=== PATIENT | male | born 1990 | race African-American/Black ===

== ENCOUNTER 2017-06-15 18:26 | Emergency (ER) | payer SELFPAY ==
--- NOTE | 2017-06-15 19:54 | DIAGNOSTIC IMAGING REPORT ---
PROCEDURE: XR ANKLE 3 OR 4 VIEWS - RIGHT INDICATION: TRAUMA/INJURY TECHNIQUE: Four views of the right ankle. COMPARISON: None. FINDINGS: Normal mineralization. No fractures. Asymmetric medial mortise widening, 5.3 mm versus 3.3 mm. No tibiotalar joint effusion. No suspicious soft-tissue calcification or radiodense foreign bodies. Achilles tendon appears grossly normal. IMPRESSION: 1. Asymmetric widening of the medial mortise. This may indicate ligamentous injury although the degree of swelling is minimal. 2. Knee radiograph is recommended to rule out high fibular fracture, Maissonieuve fracture.
--- NOTE | 2017-06-15 21:37 | DIAGNOSTIC IMAGING REPORT ---
PROCEDURE: XR TIBIA AND FIBULA - RIGHT INDICATION: PER RADIOLOGIST RECOMMENDATION TECHNIQUE: Two views of the right tibia and fibula COMPARISON: None. FINDINGS: Normal mineralization. Spiral, minimally displaced proximal fibular metadiaphyseal fracture. Proximal and distal tibiofibular relationship is normal. No radiodense foreign bodies or suspicious soft tissue calcifications. IMPRESSION: 1. Spiral, proximal fibular fracture.
--- NOTE | 2017-06-15 22:20 | ED CLINICAL REPORT ---
Clinical Report - Physicians/Mid Levels [facility] [address] [place] [address] 06/15/2017 18:27 Patient: OSWALDO MELARA Time Seen: 1828; upon arrival, initial patient contact, initial documentation, patient care assumed. Arrived- By ambulance. Historian- patient. HISTORY OF PRESENT ILLNESS Chief Complaint: Injury to the right ankle. The injury happened just prior to arrival. The patient sustained a twisting injury while running playing football (playing football, got tackled and foot got bent under him). Occurred at an athletic field. Patient is experiencing severe pain. Patient denies injury to the head or neck. No other injury. REVIEW OF SYSTEMS The patient complains of pain on weight bearing. He has had swelling. No tingling, weakness, numbness, suspected foreign body or skin laceration. All systems otherwise negative, except as recorded above. PAST HISTORY See nurses notes. PROBLEMS: Asthma. --18:31 Gera Gillespie RJadeN. ADDITIONAL SURGERIES: Wrist surgery. --18:31 Gera Gillespie RGwen. SOCIAL HISTORY Never smoker. History of drug use: marijuana. No alcohol use. No recent travel. Visiting locally. FAMILY HISTORY No significant family medical history. ADDITIONAL NOTES The nursing notes have been reviewed with agreement regarding the chief complaint, HPI, ROS, PMH and patient medications and allergies. PHYSICAL EXAM Vital Signs: 06/15/2017 18:33 BP: 153/103. HR: 60. RR: 23. O2 saturation: 100%. Temp: 98.7 F. Pain level now: 10/10. Have been reviewed as abnormal and appear to be correct. Hypertensive. Heart rate normal. Respiratory rate normal. Temperature normal. Oxygen saturation normal. Appearance: Alert. Oriented X3. Anxious. No acute distress. (and yelling out). Head: Head atraumatic. Eyes: Pupils equal, round and reactive to light. Eyes normal inspection. Respiratory: No respiratory distress. Skin: Skin intact. Skin warm and dry. Extremities: Ankle injury present. Right lateral ankle: moderate tenderness and swelling of the lateral malleolus. Limited ROM (diminished plantar flexion, dorsiflexion, inversion and eversion). Neurovascular intact distally. No ligamentous laxity present. No joint effusion. No erythema, laceration, abrasion, ecchymosis or puncture wound. No foreign body or deformity. No foot injury. Foot and ankle exam otherwise negative. Extremities otherwise negative. Neuro, Vascular and Tendons: Vascular status intact. Sensation intact. Motor intact. Tendon function intact. Gait: Abnormal gait. Gait not tested due to pain. Neuro: Oriented X 3. No motor deficit. No sensory deficit. Note: isolated injury to ankle. LABS, X-RAYS, AND EKG X-Rays: Right tib/fib. Right ankle negative. Rt Tib/Fib X-ray: Fracture of the proximal right fibula. The X-rays were independently viewed by me. Rt Ankle X-ray: (IMPRESSION: 1. Asymmetric widening of the medial mortise. This may indicate ligamentous injury although the degree of swelling is minimal. 2. Knee radiograph is recommended to rule out high fibular fracture, Maissonieuve fracture. Electronically Final signed by:Eladia Hong MD 06/15/2017 7:55:01 PM). PROGRESS AND PROCEDURES Splint Application: Posterior fiberglass splint applied to right lower extremity. Splint applied by tech. Follow-up recommended within 3 days. Fitted for crutches by the tech. pt left prior to me checking splint. Course of Care: 1844. pt anxious, crying, aware of xray results 1899. Called radiology for reads, still waiting for reports pt aware we needed more films R lower leg re-assessed, tender everywhere I touch nurses informing pt left after splint, so splint never got checked by me, pt did receive dc papers and rx. Patient counseled in person regarding the patient's stable condition, test results and diagnosis. 20:37. Differential Diagnosis: Other possible considerations: ankle fx vs sprain. Above considerations are based on history, physical exam, reassessment and X-Ray data. Differential diagnosis was discussed with patient. Disposition: Discharged home in good and improved condition. Condition: good and stable. CLINICAL IMPRESSION Closed nondisplaced oblique fracture of the proximal aspect of the right fibula. Sprain of the tarsal ligaments of the right foot. INSTRUCTIONS Apply ice for 20 minutes four times a day for two days until better. Don't apply ice directly to skin. Use crutches until released. Wear fiberglass splint until released. Elevate affected areas above chest level for two days until better. Warnings: GENERAL WARNINGS: Return or contact your physician immediately if your condition worsens or changes unexpectedly, if not improving as expected, or if other problems arise. Specifically return if problem worsens. Prescription Medications: Zofran 4 mg: Take 1 orally every six hours as needed for nausea/vomiting. Dispense ten (10). No refills. Substitution is permissible. [place] 5 mg / 325 mg tablets: take 1 orally every 6 hours. Dispense thirty (30). No refill. Motrin 800 mg tablets: take 1 tablet orally every 8 hours as needed for pain. Dispense thirty (30). No refills. Substitution is permissible. Follow-up: Follow up with an orthopedic surgeon in about three days even if well. Call for an appointment. Summary of care provided to patient. Understanding of the discharge instructions verbalized by patient. (Electronically signed by Shama Browning A.R.N.P. 06/15/2017 22:51)
--- NOTE | 2017-06-15 22:20 | ED NURSING NOTES ---
Clinical Report - Nurses [place] [address] [place] [address] 06/15/2017 18:27 [id number] Triage time 18:30 Jun 15 2017. Acuity: LEVEL 4. Chief Complaint: INJURY TO RIGHT KNEE and ANKLE. Alert. No acute distress. SEPSIS SCREEN: Sepsis Screen. Negative (no infection suspected/documented). KYE COMA SCORE: [place] Coma Scale: 15- eyes open spontaneously (4); best verbal response- oriented x 4 (5); best motor response- obeys commands (6). --18:32 Gera Gillespie R.N. 18:33 06/15/17. BP: 153/103. HR: 60. RR: 23. O2 saturation: 100%. Temp: 98.7 F. Pain level now: 09/10. --18:34 Gera Gillespie R.N. Weight: 113.3 kg stated. Height/Length: 72 inches Per Patient. BMI: 33.9. --18:31 Gera Gillespie R.N. Medications None. --18:31 Gera Gillespie R.N. Allergies None. --18:31 Gera Gillespie R.N. Medication/allergy information source: the patient. --18:32 Gera Gillespie R.N. History Arrived by EMS. Historian: patient. This occurred just prior to arrival. Mechanism of injury: (pt playing football, was tackled and felt a pop to right ankle). Treatment REHABILITATION SERVICES DIRECTOR: Splint. See EMS report. PAST MEDICAL HX: Tetanus status: up-to-date. Immunizations: up-to-date. SOCIAL HX: Never smoker. History of drug use: marijuana. No alcohol use. No infectious disease exposure. ABUSE ASSESSMENT: No report of abuse. SELF HARM ASSESSMENT: A self harm assessment was performed. The patient answered "no" to the question "Do you have thoughts of harming or killing yourself?". FALL RISK ASSESSMENT: Fall risk assessment completed. No fall risk identified. NUTRITIONAL RISK ASSESSMENT: The nutritional risk assessment revealed no deficiencies. FUNCTIONAL ASSESSMENT: Functional assessment: no impairments noted. LEARNING NEEDS ASSESSMENT: The learning needs assessment revealed no barriers. SKIN INTEGRITY ASSESSMENT: Skin integrity risk assessment completed. No skin integrity risk identified. --18:32 Gera Gillespie R.N. PROBLEMS: Asthma. --18:31 Gera Gillespie R.N. ADDITIONAL SURGERIES: Wrist surgery. --18:31 Gera Gillespie R.N. Interventions ID band on patient. To treatment room. --18:32 Gera Gillespie R.N. PHYSICAL ASSESSMENT To room via stretcher. GENERAL / NEURO / PSYCH: Oriented X 4. Alert. Appears in no acute distress. EXTREMITIES: Limited ROM present. Capillary refill is less than 2 seconds in the extremities. Extremity pulses are within normal limits. Neuro-vascular status intact to the extremity. Right posterior ankle: tenderness and swelling and lateral ankle: tenderness and swelling. SKIN: Skin intact. Skin is warm and dry. --18:33 Gera Gillespie R.N. NURSING PROGRESS NOTES Reassurance given. Call light placed in reach. Side rails up x 2. Bed placed in lowest position. Brakes of bed on. --18:33 Gera Gillespie R.N. 18:30 06/15/2017 Dilaudid (HYDROmorphone HCl PF) IM 1 mg given. Given in the left deltoid. Allergies verified, confirmed 5 rights and sedative warning given to the patient. --18:48 Janice Aragon R.N. 18:30 06/15/2017 Zofran ODT (Ondansetron) PO Oral Disintegrating Tablets 4 mg given. Allergies verified and confirmed 5 rights. --18:48 Janice Aragon R.N. Patient waiting for radiology results. ( pt crying and swearing, reports no change in pain since presentation and pain meds.). --19:04 Gera Gillespie R.N. ( cont to wait on rad read, WARD MAID called to inquire, pt updated). --19:21 Gera Gillespie R.N. 20:40 06/15/2017 Toradol (Ketorolac Tromethamine) IM 60 mg given. Given in the left ventral gluteus. Allergies verified and confirmed 5 rights. --20:42 Titus Mitchell R.N. ( preparing pt for dispo, pt reports no change in pain after meds given, pt is now calm, smiling, no longer crying, friends at bedside, splint being placed,). --21:30 Gera Gillespie R.N. 20:21 06/15/17. BP: 147/84. HR: 64. RR: 17. O2 saturation: 99%. Pain level now: 09/10. --21:31 Gera Gillespie R.N. Call light placed in reach. Side rails up x 2. Bed placed in lowest position. Brakes of bed on. --21:31 Gera Gillespie R.N. 21:45. Short leg posterior fiberglass lower extremity splint applied to right leg by tech. Distal pulses intact, sensation intact and motor within normal limits. Patient fit with new crutches. Crutch training performed by tech; the patient demonstrated proper use. --22:38 Rin Horton. DISPOSITION / DISCHARGE 21:44 06/15/17. No learning barriers present. Discharge instructions provided and reviewed with the patient. Reviewed medication(s) side effects, precautions, dosing and course information. Prescription(s) given to the patient. Patient verbalized understanding. Written instructions provided in Maori. The patient was discharged by the nurse practitioner. He was discharged home and accompanied by water chaser. He left the Emergency Department ambulatory on crutches and via private vehicle. Peanut Shaker driving. ( pt given dc instructions and rx, pt instructed on how to check for cms to foot and f/u with ortho, splint placed by ASA Gar, pt instructed to wait for WARD MAID to check splint -). --21:54 Gera Gillespie R.N. 21:50 06/15/17. BP: 141/92. HR: 64. RR: 15. O2 saturation: 100%. Temp: deferred. Pain level now: 09/10. --21:54 Gera Gillespie R.N. Departure time: 21:54 Jun 15 2017. ( pts room empty, pt seen going to lobby using crutches). --21:54 Gera Gillespie R.N. Locked/Released at 06/15/2017 23:40 by Gera Gillespie R.N.
--- NOTE | 2017-06-15 22:20 | ED ORDER SUMMARY ---
..... Patient: OSWALDO MELARA OrderSheet VisitID: [id number] [address] [place] [address] 27y, M Registration Date/Time: 06/15/2017 ORDER SHEET Weight: 113.3 kg (stated) Allergies: None GENERAL ORDERS: Ankle 3 or 4V Right Urgent (18:31 06/15/2017 HBivens A.R.N.P.) (Ack 18:35 Brian) (18:45 Serg) Tibia/Fibula Right Urgent (20:00 06/15/2017 HBivens A.R.N.P.) (Ack 20:03 AMcQuoid ER Tech1) (20:46 RFay) Splint (LE) (Right) (Short Leg Posterior) (20:36 06/15/2017 HBivens A.R.N.P.) (21:48 KKnebel R.N.) Crutches (20:36 06/15/2017 HBivens A.R.N.P.) (21:48 KKnebel R.N.) MEDICATION ORDERS: Dilaudid IM 1 mg (HIGH ALERT MEDICATION, NOW) (18:31 06/15/2017 HBivens A.R.N.P.) (18:48 KWilliams R.N.) Zofran ODT PO 4 mg (NOW) (18:31 06/15/2017 HBivens A.R.N.P.) (18:48 KWilliams R.N.) Toradol IM 60 mg (NOW) (20:31 06/15/2017 HBivens A.R.N.P.) (Ack 20:33 Rupa R.N.) (20:42 Delfino R.N.) IV FLUIDS: ORDER SHEET NOTES: [Electronically signed by Shama Browning.R.N.P. (22:51 06/15/2017)] [Electronically signed by Gera GillespieNJade (23:40 06/15/2017)] [Electronically locked/signed by Gera Gillespie R.N. (23:40 06/15/2017)]
--- NOTE | 2017-06-15 22:20 | ED ORDER SUMMARY ---
..... Patient: OSWALDO MELARA OrderSheet [facility] VisitID: [id number] [address] [place] [address] 27y, M Registration Date/Time: 06/15/2017 ORDER SHEET Weight: 113.3 kg (stated) Allergies: None GENERAL ORDERS: Ankle 3 or 4V Right Urgent (18:31 06/15/2017 HBivens A.R.N.P.) (Ack 18:35 Brian) (18:45 Serg) Tibia/Fibula Right Urgent (20:00 06/15/2017 HBivens A.R.N.P.) (Ack 20:03 AMcQuoid ER Tech1) (20:46 RFay) Splint (LE) (Right) (Short Leg Posterior) (20:36 06/15/2017 HBivens A.R.N.P.) (21:48 KKnebel R.N.) Crutches (20:36 06/15/2017 HBivens A.R.N.P.) (21:48 KKnebel R.N.) MEDICATION ORDERS: Dilaudid IM 1 mg (HIGH ALERT MEDICATION, NOW) (18:31 06/15/2017 HBivens A.R.N.P.) (18:48 KWilliams R.N.) Zofran ODT PO 4 mg (NOW) (18:31 06/15/2017 HBivens A.R.N.P.) (18:48 KWilliams R.N.) Toradol IM 60 mg (NOW) (20:31 06/15/2017 HBivens A.R.N.P.) (Ack 20:33 Rupa R.N.) (20:42 Delfino R.N.) IV FLUIDS: ORDER SHEET NOTES: [Electronically signed by Shama Browning.R.N.P. (22:51 06/15/2017)] [Electronically signed by Gera GillespieNJade (23:40 06/15/2017)] [Electronically locked/signed by Gera Gillespie R.N. (23:40 06/15/2017)]
--- NOTE | 2017-06-15 22:20 | ED NURSING NOTES ---
Clinical Report - Nurses [place] [address] [place] [address] 06/15/2017 18:27 [id number] Triage time 18:30 Jun 15 2017. Acuity: LEVEL 4. Chief Complaint: INJURY TO RIGHT KNEE and ANKLE. Alert. No acute distress. SEPSIS SCREEN: Sepsis Screen. Negative (no infection suspected/documented). KYE COMA SCORE: [place] Coma Scale: 15- eyes open spontaneously (4); best verbal response- oriented x 4 (5); best motor response- obeys commands (6). --18:32 Gera Gillespie R.N. 18:33 06/15/17. BP: 153/103. HR: 60. RR: 23. O2 saturation: 100%. Temp: 98.7 F. Pain level now: 09/10. --18:34 Gera Gillespie R.N. Weight: 113.3 kg stated. Height/Length: 72 inches Per Patient. BMI: 33.9. --18:31 Gera Gillespie R.N. Medications None. --18:31 Gera Gillespie R.N. Allergies None. --18:31 Gera Gillespie R.N. Medication/allergy information source: the patient. --18:32 Gera Gillespie R.N. History Arrived by EMS. Historian: patient. This occurred just prior to arrival. Mechanism of injury: (pt playing football, was tackled and felt a pop to right ankle). Treatment BLACK PULLER: Splint. See EMS report. PAST MEDICAL HX: Tetanus status: up-to-date. Immunizations: up-to-date. SOCIAL HX: Never smoker. History of drug use: marijuana. No alcohol use. No infectious disease exposure. ABUSE ASSESSMENT: No report of abuse. SELF HARM ASSESSMENT: A self harm assessment was performed. The patient answered "no" to the question "Do you have thoughts of harming or killing yourself?". FALL RISK ASSESSMENT: Fall risk assessment completed. No fall risk identified. NUTRITIONAL RISK ASSESSMENT: The nutritional risk assessment revealed no deficiencies. FUNCTIONAL ASSESSMENT: Functional assessment: no impairments noted. LEARNING NEEDS ASSESSMENT: The learning needs assessment revealed no barriers. SKIN INTEGRITY ASSESSMENT: Skin integrity risk assessment completed. No skin integrity risk identified. --18:32 Gera Gillespie R.N. PROBLEMS: Asthma. --18:31 Gera Gillespie R.N. ADDITIONAL SURGERIES: Wrist surgery. --18:31 Gera Gillespie R.N. Interventions ID band on patient. To treatment room. --18:32 Gera Gillespie R.N. PHYSICAL ASSESSMENT To room via stretcher. GENERAL / NEURO / PSYCH: Oriented X 4. Alert. Appears in no acute distress. EXTREMITIES: Limited ROM present. Capillary refill is less than 2 seconds in the extremities. Extremity pulses are within normal limits. Neuro-vascular status intact to the extremity. Right posterior ankle: tenderness and swelling and lateral ankle: tenderness and swelling. SKIN: Skin intact. Skin is warm and dry. --18:33 Gera Gillespie R.N. NURSING PROGRESS NOTES Reassurance given. Call light placed in reach. Side rails up x 2. Bed placed in lowest position. Brakes of bed on. --18:33 Gera Gillespie R.N. 18:30 06/15/2017 Dilaudid (HYDROmorphone HCl PF) IM 1 mg given. Given in the left deltoid. Allergies verified, confirmed 5 rights and sedative warning given to the patient. --18:48 Janice Aragon R.N. 18:30 06/15/2017 Zofran ODT (Ondansetron) PO Oral Disintegrating Tablets 4 mg given. Allergies verified and confirmed 5 rights. --18:48 Janice Aragon R.N. Patient waiting for radiology results. ( pt crying and swearing, reports no change in pain since presentation and pain meds.). --19:04 Gera Gillespie R.N. ( cont to wait on rad read, GRIEVANCE AND APPEALS SPECIALIST called to inquire, pt updated). --19:21 Gera Gillespie R.N. 20:40 06/15/2017 Toradol (Ketorolac Tromethamine) IM 60 mg given. Given in the left ventral gluteus. Allergies verified and confirmed 5 rights. --20:42 Titus Mitchell R.N. ( preparing pt for dispo, pt reports no change in pain after meds given, pt is now calm, smiling, no longer crying, friends at bedside, splint being placed,). --21:30 Gera Gillespie R.N. 20:21 06/15/17. BP: 147/84. HR: 64. RR: 17. O2 saturation: 99%. Pain level now: 09/10. --21:31 Gera Gillespie R.N. Call light placed in reach. Side rails up x 2. Bed placed in lowest position. Brakes of bed on. --21:31 Gera Gillespie R.N. 21:45. Short leg posterior fiberglass lower extremity splint applied to right leg by tech. Distal pulses intact, sensation intact and motor within normal limits. Patient fit with new crutches. Crutch training performed by tech; the patient demonstrated proper use. --22:38 Rin Horton. DISPOSITION / DISCHARGE 21:44 06/15/17. No learning barriers present. Discharge instructions provided and reviewed with the patient. Reviewed medication(s) side effects, precautions, dosing and course information. Prescription(s) given to the patient. Patient verbalized understanding. Written instructions provided in Armenian. The patient was discharged by the nurse practitioner. He was discharged home and accompanied by histology technologist. He left the Emergency Department ambulatory on crutches and via private vehicle. [employer] driving. ( pt given dc instructions and rx, pt instructed on how to check for cms to foot and f/u with ortho, splint placed by ASA Gar, pt instructed to wait for GRIEVANCE AND APPEALS SPECIALIST to check splint -). --21:54 Gera Gillespie R.N. 21:50 06/15/17. BP: 141/92. HR: 64. RR: 15. O2 saturation: 100%. Temp: deferred. Pain level now: 09/10. --21:54 Gera Gillespie R.N. Departure time: 21:54 Jun 15 2017. ( pts room empty, pt seen going to lobby using crutches). --21:54 Gera Gillespie R.N. Locked/Released at 06/15/2017 23:40 by Gera Gillespie R.N.
--- NOTE | 2017-06-15 23:40 | ED MAR SUMMARY ---
..... Medication Administration Record [facility] [address] [place] [address] Patient: OSWALDO MELARA Visit ID: [id number] 27y, M Weight: 113.3 kg Height/Length: 72 in BMI: 33.9 ALLERGIES: None Given 18:30 06/15/2017 Janice Aragon RKeshawn Medication Administered: DILAUDID [IM] (HYDROMORPHONE HCL PF), Dose: 1 mg IM. Medication Ordered: Dilaudid IM 1 mg (HIGH ALERT MEDICATION, NOW). Given 18:30 06/15/2017 Janice Aragon RKeshawn Medication Administered: ZOFRAN ODT [PO] (ONDANSETRON), Dose: 4 mg Oral Disintegrating Tablets PO. Medication Ordered: Zofran ODT PO 4 mg (NOW). Given 20:40 06/15/2017 Titus Mitchell RJadeNJade Medication Administered: TORADOL [IM] (KETOROLAC TROMETHAMINE), Dose: 60 mg IM. Medication Ordered: Toradol IM 60 mg (NOW).
--- NOTE | 2017-06-15 23:40 | ED MED RECONCILIATION SUMMARY ---
Patient: OSWALDO MELARA Medication Reconciliation Report [facility] VisitID: [id number] [address] [place] [address] 27y, M Registration Date/Time: 06/15/2017 Weight: 113.3 kg Height/Length: 72 in. BMI: 33.9 ALLERGIES: None The patient's Home Medications are listed below: NONE. The source(s) of the original Home Medication information: patient The following Medications were given to the patient in the Emergency Department: Dilaudid [IM] IM 1 mg, administered: 06/15/2017 6:30:00 PM Zofran ODT [PO] PO 4 mg, administered: 06/15/2017 6:30:00 PM Toradol [IM] IM 60 mg, administered: 06/15/2017 8:40:00 PM The following Medications were prescribed to the patient: Zofran 4 mg: Take 1 orally every six hours as needed for nausea/vomiting. Dispense ten (10). No refills. Substitution is permissible. -- Shama Browning A.R.N.P. [place] 5 mg / 325 mg tablets: take 1 orally every 6 hours. Dispense thirty (30). No refill. -- Shama Browning A.R.N.P. Motrin 800 mg tablets: take 1 tablet orally every 8 hours as needed for pain. Dispense thirty (30). No refills. Substitution is permissible. -- Shama Browning A.R.N.P.
--- NOTE | 2017-06-15 23:40 | ED MED RECONCILIATION SUMMARY ---
Patient: OSWALDO MELARA Medication Reconciliation Report [facility] VisitID: [id number] [address] [place] [address] 27y, M Registration Date/Time: 06/15/2017 Weight: 113.3 kg Height/Length: 72 in. BMI: 33.9 ALLERGIES: None The patient's Home Medications are listed below: NONE. The source(s) of the original Home Medication information: patient The following Medications were given to the patient in the Emergency Department: Dilaudid [IM] IM 1 mg, administered: 06/15/2017 6:30:00 PM Zofran ODT [PO] PO 4 mg, administered: 06/15/2017 6:30:00 PM Toradol [IM] IM 60 mg, administered: 06/15/2017 8:40:00 PM The following Medications were prescribed to the patient: Zofran 4 mg: Take 1 orally every six hours as needed for nausea/vomiting. Dispense ten (10). No refills. Substitution is permissible. -- Shama Browning A.R.N.P. [place] 5 mg / 325 mg tablets: take 1 orally every 6 hours. Dispense thirty (30). No refill. -- Shama Browning A.R.N.P. Motrin 800 mg tablets: take 1 tablet orally every 8 hours as needed for pain. Dispense thirty (30). No refills. Substitution is permissible. -- Shama Browning A.R.N.P.
--- NOTE | 2017-06-15 23:40 | ED DISCHARGE INSTRUCTIONS ---
Patient: OSWALDO MELARA General Instructions [facility] VisitID: [id number] [address] [place] [address] 27y, M Registration Date/Time: 06/15/2017 Closed nondisplaced oblique fracture of the proximal aspect of the right fibula. Sprain of the tarsal ligaments of the right foot. INSTRUCTIONS Apply ice for 20 minutes four times a day for two days until better. Don't apply ice directly to skin. Use crutches until released. Wear fiberglass splint until released. Elevate affected areas above chest level for two days until better. Warnings: GENERAL WARNINGS: Return or contact your physician immediately if your condition worsens or changes unexpectedly, if not improving as expected, or if other problems arise. Specifically return if problem worsens. Prescription Medications: Zofran 4 mg: Take 1 orally every six hours as needed for nausea/vomiting. Dispense ten (10). No refills. Substitution is permissible. [place] 5 mg / 325 mg tablets: take 1 orally every 6 hours. Dispense thirty (30). No refill. Motrin 800 mg tablets: take 1 tablet orally every 8 hours as needed for pain. Dispense thirty (30). No refills. Substitution is permissible. Follow-up: Follow up with an orthopedic surgeon in about three days even if well. Call for an appointment. Summary of care provided to patient. Understanding of the discharge instructions verbalized by patient. ADDITIONAL INFORMATION Sprain, Foot A sprain is a stretching or tearing of the ligaments that hold a joint together. There are no broken bones. Sprains take from 36 weeks to heal. A sprain may be treated with a splint, walking cast or special boot. Mild sprains may not require any additional support. Home care The following guidelines will help you care for your injury at home: Keep your leg elevated when sitting or lying down. This is very important during the first 48 hours to reduce swelling. Stay off the injured foot as much as possible until you can walk on it without pain. If needed, you may use crutches during the first week for this purpose. (Crutches can be rented at many pharmacies or surgical/orthopedic supply stores). You may be given a cast shoe to wear to prevent movement in your foot. If not, you can use a sandal or any shoe that does not put pressure on the injured area until the swelling and pain go away. If using a sandal, be careful not to strike your foot against anything, since another injury could make the sprain worse. Apply an ice pack (ice cubes in a plastic bag, wrapped in a towel) over the injured area for 20 minutes every 12 hours the first day. You should continue with ice packs 34 times a day for the next two days. Continue the use of ice packs for relief of pain and swelling as needed. You may use acetaminophen or ibuprofen to control pain, unless another medicine was prescribed. If you have chronic liver or kidney disease or ever had a stomach ulcer or GI bleeding, talk with your doctor before using these medicines. If you were given a splint or cast, keep it dry. Bathe with your splint/cast well out of the water, protected with a large plastic bag, rubber-banded at the top end. If a fiberglass splint or cast gets wet, you can dry it with a hair-dryer. You may return to sports after healing, when you can run without pain. Follow-up care Follow up with your doctor as directed. Any X-rays you had today dont show any broken bones, breaks, or fractures. Sometimes fractures dont show up on the first X-ray. Bruises and sprains can sometimes hurt as much as a fracture. These injuries can take time to heal completely. If your symptoms dont improve or they get worse, talk with your doctor. You may need a repeat X-ray. When to seek medical care Get prompt medical attention if any of the following occur: The plaster cast or splint gets wet or soft The fiberglass cast or splint gets wet and does not dry for 24 hours Pain or swelling increases, or redness appears Toes become cold, blue, numb, or tingly Fracture: Lower Extremity You have a break (fracture) of the leg. A fracture is treated with a splint or cast or special boot. It will take at about 4-6 weeks for the fracture to heal. Surgery may be needed to fix severe injuries. Home Care: You will be given a splint, cast, boot, or other device to prevent movement at the site of injury. Unless you were told otherwise, use crutches or a walker and do not bear weight on the injured leg until cleared by your doctor to do so. (Crutches and walkers can be rented at many pharmacies and surgical/orthopedic supply stores). Keep your leg elevated to reduce pain and swelling. When sleeping, place a pillow under the injured leg. When sitting, support the injured leg so it is level with your waist. This is very important during the first 48 hours. Apply an ice pack (ice cubes in a plastic bag, wrapped in a towel) over the injured area for 20 minutes every 1-2 hours the first day. You can place the ice pack directly over the splint/cast. Continue with ice packs 3-4 times a day for the next two days, then as needed for the relief of pain and swelling. Keep the cast/splint/boot completely dry at all times. Bathe with your cast/splint/boot out of the water, protected with a large plastic bag, rubber-banded at the top end. If a boot or fiberglass cast/splint gets wet, you can dry it with a hair-dryer. You may use acetaminophen (Tylenol) or ibuprofen (Motrin, Advil) to control pain, unless another pain medicine was prescribed. [NOTE: If you have chronic liver or kidney disease or ever had a stomach ulcer or GI bleeding, talk with your doctor before using these medicines.] Follow Up with you doctor in one week, or as advised by our staff, to be sure the bone is healing properly. If a splint was applied, it may be converted to a cast at your next visit. [NOTE: A radiologist will review any X-rays that were taken. We will notify you of any new findings that may affect your care.] Get Prompt Medical Attention if any of the following occur: The plaster cast or splint becomes wet or soft The fiberglass cast or splint remains wet for more than 24 hours Increased tightness or pain under the cast or splint Toes become swollen, cold, blue, numb or tingly Crutch Walking Crutch Adjustment Make sure the crutches you use are adjusted to fit you. When you stand, there should be room to fit 2-3 fingers between the top of the crutch and your armpit. Your elbow should be slightly bent when holding the hand supervisor extrusion. Crutch Walking: Place the crutches forward 12" in front of and 6" to the side of your feet. Lean your weight forward as you push down on the handgrips. Your weight should be on your hands and yourstrong leg, not your armpits . Let your body swing through, landing on the strong leg. Advance the crutches forward again. The crutch and the injured leg should move together. Going Up Steps: ("Up with the good") With both crutches on the same step as your feet, push down on the handgrips. Balancing with very light pressure on the weak leg, let your hands support your weight as you raise your strong leg onto the next higher step. Transfer all your weight to your strong leg (still bent) as you move the crutches up to the next step alongside the strong leg. With your weight evenly balanced on the two crutches and your strong leg, straighten your strong knee as you raise the weak leg up to the next step. Going Down Steps: ("Down with the bad") With both crutches on the same step as your feet, push down on the handgrips. With your weight evenly balanced on the two crutches and your strong leg, bend your strong knee as you lower the weak leg down to the next step. Let your strong leg support you (still bent) as you move the crutches down alongside the weak leg. Transfer your weight to your hands, balancing with very light pressure on the weak leg as you lower your strong leg alongside your weak leg. Splint Care, Fiberglass The following will help you care for your splint: It will take up totwo hours for your fiber glass splint to fully harden; therefore, do notapply any pressure on it during that time or else it may break. To prevent swelling under the splint, for thefirst 48 hours: If the splint is on yourarm, keep it in a sling or raised to shoulder level when sitting or standing; rest it on your chest or on a pillow at your side when lying down. If the splint is on yourfoot, keep it propped up above the level of your waist when sitting or lying. Avoid crutch walking as much as possible during this time. Keep the splint/cast dry at all times. Bathe with your splint/cast well out of the water, protected with a large plastic bag, rubber-banded at the top end. If a fiberglass cast or splint gets wet, you can dry it with a hair-dryer. Follow-up care Follow up with your doctor or this facility as advised. When to seek medical care Get prompt medical attention if any of the following occur: Bad odor from the splint or wound-fluid stains the splint The splint cracks or remains wet over 24 hours Increasing tightness or pressure under the splint Fingers or toes become swollen, cold, blue, numb or tingly Increased pain under the splint Ondansetron Oral disintegrating tablet What is this medicine? ONDANSETRON (on BRIELLE se freddie) is used to treat nausea and vomiting caused by chemotherapy. It is also used to prevent or treat nausea and vomiting after surgery. How should I use this medicine? These tablets are made to dissolve in the mouth. Do not try to push the tablet through the foil backing. With dry hands, peel away the foil backing and gently remove the tablet. Place the tablet in the mouth and allow it to dissolve, then swallow. While you may take these tablets with water, it is not necessary to do so. Talk to your criminal court judge regarding the use of this medicine in children. Special care may be needed. What side effects may I notice from receiving this medicine? Side effects that you should report to your doctor or health career services coordinator as soon as possible: allergic reactions like skin rash, itching or hives, swelling of the face, lips, or tongue breathing problems dizziness fast or irregular heartbeat feeling faint or lightheaded, falls fever and chills swelling of the hands and feet tightness in the chest Side effects that usually do not require medical attention (report to your doctor or health career services coordinator if they continue or are bothersome): constipation or diarrhea headache What may interact with this medicine? Do not take this medicine with any of the following medications: -apomorphine -cisapride -dofetilide -dronedarone -pimozide -thioridazine -ziprasidone This medicine may also interact with the following medications: -carbamazepine -phenytoin -rifampicin -tramadol -other medicines that prolong the QT interval (cause an abnormal heart rhythm) What if I miss a dose? If you miss a dose, take it as soon as you can. If it is almost time for your next dose, take only that dose. Do not take double or extra doses. Where should I keep my medicine? Keep out of the reach of children. Store between 2 and 30 degrees C (36 and 86 degrees F). Throw away any unused medicine after the expiration date. What should I tell my health care provider before I take this medicine? They need to know if you have any of these conditions: heart disease history of irregular heartbeat liver disease low levels of magnesium or potassium in the blood an unusual or allergic reaction to ondansetron, granisetron, other medicines, foods, dyes, or preservatives or trying to get breast-feeding What should I watch for while using this medicine? Check with your doctor or health career services coordinator as soon as you can if you have any sign of an allergic reaction. Hydrocodone Bitartrate, Acetaminophen Oral tablet What is this medicine? ACETAMINOPHEN; HYDROCODONE (a set a WON leonardo fen; chiquita droe KOE done) is a pain reliever. It is used to treat mild to moderate pain. How should I use this medicine? Take this medicine by mouth. Swallow it with a full glass of water. Follow the directions on the prescription label. If the medicine upsets your stomach, take the medicine with food or milk. Do not take more than you are told to take. Talk to your criminal court judge regarding the use of this medicine in children. This medicine is not approved for use in children. What side effects may I notice from receiving this medicine? Side effects that you should report to your doctor or health career services coordinator as soon as possible: allergic reactions like skin rash, itching or hives, swelling of the face, lips, or tongue breathing problems confusion feeling faint or lightheaded, falls stomach pain yellowing of the eyes or skin Side effects that usually do not require medical attention (report to your doctor or health career services coordinator if they continue or are bothersome): nausea, vomiting stomach upset What may interact with this medicine? alcohol antihistamines isoniazid medicines for depression, anxiety, or psychotic disturbances medicines for sleep muscle relaxants naltrexone narcotic medicines (opiates) for pain phenobarbital ritonavir tramadol What if I miss a dose? If you miss a dose, take it as soon as you can. If it is almost time for your next dose, take only that dose. Do not take double or extra doses. Where should I keep my medicine? Keep out of the reach of children. This medicine can be abused. Keep your medicine in a safe place to protect it from theft. Do not share this medicine with anyone. Selling or giving away this medicine is dangerous and against the law. Store at room temperature between 15 and 30 degrees C (59 and 86 degrees F). Protect from light. Keep container tightly closed. Throw away any unused medicine after the expiration date. Discard unused medicine and used packaging carefully. Pets and children can be harmed if they find used or lost packages. What should I tell my health care provider before I take this medicine? They need to know if you have any of these conditions: brain tumor Crohn's disease, inflammatory bowel disease, or ulcerative colitis drink more than 3 alcohol-containing drinks per day drug abuse or addiction head injury heart or circulation problems kidney disease or problems going to the bathroom liver disease lung disease, asthma, or breathing problems an unusual or allergic reaction to acetaminophen, hydrocodone, other opioid analgesics, other medicines, foods, dyes, or preservatives or trying to get breast-feeding What should I watch for while using this medicine? Tell your doctor or health career services coordinator if your pain does not go away, if it gets worse, or if you have new or a different type of pain. You may develop tolerance to the medicine. Tolerance means that you will need a higher dose of the medicine for pain relief. Tolerance is normal and is expected if you take the medicine for a long time. Do not suddenly stop taking your medicine because you may develop a severe reaction. Your body becomes used to the medicine. This does NOT mean you are addicted. Addiction is a behavior related to getting and using a drug for a non-medical reason. If you have pain, you have a medical reason to take pain medicine. Your doctor will tell you how much medicine to take. If your doctor wants you to stop the medicine, the dose will be slowly lowered over time to avoid any side effects. You may get drowsy or dizzy when you first start taking the medicine or change doses. Do not drive, use machinery, or do anything that may be dangerous until you know how the medicine affects you. Stand or sit up slowly. There are different types of narcotic medicines (opiates) for pain. If you take more than one type at the same time, you may have more side effects. Give your health care provider a list of all medicines you use. Your doctor will tell you how much medicine to take. Do not take more medicine than directed. Call emergency for help if you have problems breathing. The medicine will cause constipation. Try to have a bowel movement at least every 2 to 3 days. If you do not have a bowel movement for 3 days, call your doctor or health career services coordinator. Too much acetaminophen can be very dangerous. Do not take Tylenol (acetaminophen) or medicines that contain acetaminophen with this medicine. Many non-prescription medicines contain acetaminophen. Always read the labels carefully. Ibuprofen Oral tablet What is this medicine? IBUPROFEN (eye BYOO proe fen) is a non-steroidal anti-inflammatory drug (NSAID). It is used for dental pain, fever, headaches or migraines, osteoarthritis, rheumatoid arthritis, or painful monthly periods. It can also relieve minor aches and pains caused by a cold, flu, or sore throat. How should I use this medicine? Take this medicine by mouth with a glass of water. Follow the directions on the prescription label. Take this medicine with food if your stomach gets upset. Try to not lie down for at least 10 minutes after you take the medicine. Take your medicine at regular intervals. Do not take your medicine more often than directed. A special MedGuide will be given to you by the pharmacist with each prescription and refill. Be sure to read this information carefully each time. Talk to your criminal court judge regarding the use of this medicine in children. Special care may be needed. What side effects may I notice from receiving this medicine? Side effects that you should report to your doctor or health career services coordinator as soon as possible: allergic reactions like skin rash, itching or hives, swelling of the face, lips, or tongue black or bloody stools, blood in the urine or in vomit breathing problems changes in vision chest pain general ill feeling or flu-like symptoms nausea or vomiting redness, blistering, peeling or loosening of the skin, including inside the mouth slurred speech or weakness on one side of the body stomach pain unexplained weight gain or swelling unusually weak or tired yellowing of eyes or skin Side effects that usually do not require medical attention (report to your doctor or health career services coordinator if they continue or are bothersome): constipation or diarrhea dizziness gas or heartburn stomach upset What may interact with this medicine? Do not take this medicine with any of the following medications: cidofovir ketorolac methotrexate pemetrexed This medicine may also interact with the following medications: alcohol aspirin diuretics lithium other drugs for inflammation like prednisone warfarin What if I miss a dose? If you miss a dose, take it as soon as you can. If it is almost time for your next dose, take only that dose. Do not take double or extra doses. Where should I keep my medicine? Keep out of the reach of children. Store at room temperature between 15 and 30 degrees C (59 and 86 degrees F). Keep container tightly closed. Throw away any unused medicine after the expiration date. What should I tell my health care provider before I take this medicine? They need to know if you have any of these conditions: asthma cigarette smoker drink more than 3 alcohol containing drinks a day heart disease or circulation problems such as heart failure or leg edema (fluid retention) high blood pressure kidney disease liver disease stomach bleeding or ulcers an unusual or allergic reaction to ibuprofen, aspirin, other NSAIDS, other medicines, foods, dyes, or preservatives or trying to get breast-feeding What should I watch for while using this medicine? Tell your doctor or healthcare professional if your symptoms do not start to get better or if they get worse. This medicine does not prevent heart attack or stroke. In fact, this medicine may increase the chance of a heart attack or stroke. The chance may increase with longer use of this medicine and in people who have heart disease. If you take aspirin to prevent heart attack or stroke, talk with your doctor or health career services coordinator. Do not take other medicines that contain aspirin, ibuprofen, or naproxen with this medicine. Side effects such as stomach upset, nausea, or ulcers may be more likely to occur. Many medicines available without a prescription should not be taken with this medicine. This medicine can cause ulcers and bleeding in the stomach and intestines at any time during treatment. Ulcers and bleeding can happen without warning symptoms and can cause . To reduce your risk, do not smoke cigarettes or drink alcohol while you are taking this medicine. You may get drowsy or dizzy. Do not drive, use machinery, or do anything that needs mental alertness until you know how this medicine affects you. Do not stand or sit up quickly, especially if you are an older patient. This reduces the risk of dizzy or fainting spells. This medicine can cause you to bleed more easily. Try to avoid damage to your teeth and gums when you brush or floss your teeth. You have been given the following additional information: Sprain, Foot Fracture, Lower Extremity Crutch Walking Splint Care, Fiberglass Ondansetron Oral disintegrating tablet Hydrocodone Bitartrate, Acetaminophen Oral tablet Ibuprofen Oral tablet (Electronically signed by Shama Browning A.R.N.P. 06/15/2017 22:51)
--- NOTE | 2017-06-15 23:40 | ED MAR SUMMARY ---
..... Medication Administration Record [facility] [address] [place] [address] Patient: OSWALDO MELARA Visit ID: [id number] 27y, M Weight: 113.3 kg Height/Length: 72 in BMI: 33.9 ALLERGIES: None Given 18:30 06/15/2017 Janice Aragon RKeshawn Medication Administered: DILAUDID [IM] (HYDROMORPHONE HCL PF), Dose: 1 mg IM. Medication Ordered: Dilaudid IM 1 mg (HIGH ALERT MEDICATION, NOW). Given 18:30 06/15/2017 Janice Aragon RKeshawn Medication Administered: ZOFRAN ODT [PO] (ONDANSETRON), Dose: 4 mg Oral Disintegrating Tablets PO. Medication Ordered: Zofran ODT PO 4 mg (NOW). Given 20:40 06/15/2017 Titus Mitchell RJadeNJade Medication Administered: TORADOL [IM] (KETOROLAC TROMETHAMINE), Dose: 60 mg IM. Medication Ordered: Toradol IM 60 mg (NOW).
== END 2017-06-15 22:22 | disposition home or self-care (01) ==
LOC: ED SRH 18:26
DX: S82.831A Other fracture of upper and lower end of right fibula, initial encounter for closed fracture (principal); S93.611A Sprain of tarsal ligament of right foot, initial encounter; X50.1XXA Overexertion from prolonged static or awkward postures, initial encounter; Y93.61 Activity, american tackle football; Y92.321 Football field as the place of occurrence of the external cause; Y99.8 Other external cause status